=== PATIENT | male | born 2000 | race American Indian/Alaskan Native ===

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

== ENCOUNTER 2019-11-13 10:56 | Emergency (ER) | payer SELFPAY ==
[2019-11-13 11:03] VITALS: BP 124/80
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
== END 2019-11-13 11:42 | disposition left against medical advice (07) ==
LOC: ED 10:56
DX: Z11.3 Encounter for screening for infections with a predominantly sexual mode of transmission (principal)